=== PATIENT | male | born 1975 | race Caucasian/White ===

== ENCOUNTER 2016-10-02 09:23 | Emergency (ER) | payer OTHER ==
[2016-10-02 10:35] VITALS: BP 158/101
--- NOTE | 2016-10-02 10:49 | UC ---
Throat Pain/Nasal Anuj HPI - HPI Summary HPI Summary: very minor st for a couple days got concerned when he noticed white exudates, no cough, fever - History of Current Complaint Chief Complaint: UCRespiratory Stated Complaint: SORE THROAT Time Seen by Provider: 10/02/16 10:40 Hx Obtained From: Patient Onset/Duration: Gradual Onset, Lasting Days - 2, Still Present Severity: Mild Pain Intensity: 1 Pain Scale Used: 0-10 Numeric Cough: None Associated Signs & Symptoms: Positive: Negative - Allergies/Home Medications Allergies/Adverse Reactions: Allergies Allergy/AdvReac Type Severity Reaction Status Date / Time No Known Allergies Allergy Verified 10/02/16 10:34 Home Medications: Home Medications Metoprolol Tartrate TAB* [Lopressor TAB*] 50 mg PO DAILY 10/02/16 [History Confirmed 10/02/16] PMH/Surg Hx/FS Hx/Imm Hx Previously Healthy: No Cardiovascular History Of: Reports: Hypertension - Surgical History Surgical History: None - Family History Known Family History: Positive: Hypertension - Social History Occupation: Employed Full-time Lives: With Family Alcohol Use: Rare Substance Use Type: None Smoking Status (MU): Never Smoked Tobacco - Immunization History Most Recent Influenza Vaccination: august 2016 Review of Systems Constitutional: Negative Skin: Negative Eyes: Negative ENT: Sore Throat Respiratory: Negative Cardiovascular: Negative Gastrointestinal: Negative Genitourinary: Negative Motor: Negative Neurovascular: Negative Musculoskeletal: Negative Neurological: Negative Psychological: Negative All Other Systems Reviewed And Are Negative: Yes Physical Exam Triage Information Reviewed: Yes Appearance: Well-Appearing, No Pain Distress, Well-Nourished Vital Signs: Initial Vital Signs Temp 98.7 F 10/02/16 10:31 Pulse 88 10/02/16 10:31 Resp 20 10/02/16 10:31 BP 158/101 10/02/16 10:31 Pulse Ox 99 10/02/16 10:31 Vital Signs Reviewed: Yes Eye Exam: Normal Eyes: Positive: Conjunctiva Clear ENT Exam: Normal ENT: Positive: Hearing grossly normal, Pharynx normal, TMs normal, Tonsillar swelling, Tonsillar exudate. Negative: Nasal congestion, Nasal drainage Dental Exam: Normal Neck exam: Normal Neck: Positive: Supple, Nontender, No Lymphadenopathy Respiratory Exam: Normal Respiratory: Positive: Chest non-tender, Lungs clear, Normal breath sounds, No respiratory distress, No accessory muscle use Cardiovascular Exam: Normal Cardiovascular: Positive: RRR, No Murmur, Pulses Normal, Brisk Capillary Refill Musculoskeletal Exam: Normal Musculoskeletal: Positive: Strength Intact, ROM Intact, No Edema Neurological Exam: Normal Neurological: Positive: Alert, Muscle Tone Normal Psychological Exam: Normal Skin Exam: Normal Diagnostics - Laboratory Diagnostic Studies Completed/Ordered: RST(-) Throat Pain/Nasal Course/Dx - Course Assessment/Plan: increase fluids, recheck bp, tylenol, ibuprofen, otc remedies for discomfort - Differential Dx/Diagnosis Differential Diagnosis/HQI/PQRI: Pharyngitis, Sinusitis, Tonsillitis, URI Provider Diagnoses: Tonsillitis Discharge - Discharge Plan Condition: Stable Disposition: HOME Patient Education Materials: Acetaminophen (By mouth), Tonsillitis (ED), DASH Eating Plan (ED), Hypertension (ED) Referrals: Sajan Gillespie MD [Medical Doctor] - 1 Week
== END 2016-10-02 11:14 | disposition home or self-care (01) ==
LOC: UCEAST 09:23
DX: J03.90 Acute tonsillitis, unspecified (principal)
CPT/HCPCS: 87651; 99211; G0463

== ENCOUNTER 2018-03-26 07:01 | Emergency (ER) | payer OTHER ==
--- NOTE | 2018-03-26 07:41 | UC ---
Sherita Black Rebecca, scribed for Abbey Leonardo MD on 03/26/18 at 0729 . Hypertension HPI - HPI Summary HPI Summary: Pt is a 42 y/o M who presents to [facility] c/o elevated BP. PMHx HTN for which he has been following up with Dr. Gillespie who last adjusted his Metoprolol dose in August. Last followed up with Dr. Gillespie in November during which he wore an ambulatory BP cuff throughout the day, per pt. Does not remember his BP readings then, though he states that Dr. Gillespie was alright with them. He typically checks his BP less than once a week and was seen by his PCP's office for allergies last week where his BP was 158/97 per pt. Yesterday, he began feeling his "pulse wherever I can feel my pulse" describing it as his "high blood pressure feeling." When he checked it last night at home, his BP was 170/ 100 so he presents today as he wanted to be soon prior to his scheduled visit tomorrow. Denies CP, SOB, TAYLOR, vision changes, nausea, tingling, dizziness, difficulty balancing. Significant maternal FHx HTN and he has an appointment with Dr. Gillespie tomorrow. Confirms he exercises regularly and is currently taking Fluticasone nasal spray and Claritin for seasonal allergies. States that he does not drink coffee and drinks tea, but not too much. pt took his med today Pt has appt with PCP tomorrow to f/u on his bp but wanted to be checked today - History of Current Complaint Chief Complaint: UCGeneralIllness Stated Complaint: HBP Time Seen by Provider: 03/26/18 07:19 Hx Obtained From: Patient Onset/Duration: Lasting Days - Since yesterday, Still Present Reported Blood Pressure Prior To Arrival:: 170/100 Aggravating Factor(s): Nothing Alleviating Factor(s): Nothing Associated Signs And Symptoms: Negative: Chest Pain, Vision Changes, Headaches, Tingling, Dizziness - Allergies/Home Medications Allergies/Adverse Reactions: Allergies Allergy/AdvReac Type Severity Reaction Status Date / Time No Known Allergies Allergy Verified 03/26/18 07:10 Home Medications: Home Medications Fluticasone NASAL SPRAY 50MCG* [Flonase NASAL SPRAY 50MCG*] 2 spray NASAL DAILY 03/26/18 [History Confirmed 03/26/18] PMH/Surg Hx/FS Hx/Imm Hx - Additional Past Medical History Additional PMH: NEGATIVE PMHx: DM, Thyroid disease, COPD Previously Healthy: Yes Cardiovascular History: Hypertension - Surgical History Surgical History: None - Family History Known Family History: Positive: Hypertension - Social History Occupation: Employed Full-time - [employer] Lives: With Family - Daughter Alcohol Use: Rare Substance Use Type: None Smoking Status (MU): Never Smoked Tobacco - Immunization History Most Recent Influenza Vaccination: august 2016 Review of Systems Constitutional: Negative Skin: Negative Eyes: Negative ENT: Negative Respiratory: Negative Cardiovascular: Negative Gastrointestinal: Negative Genitourinary: Negative Motor: Negative Neurovascular: Negative Musculoskeletal: Negative Neurological: Negative Psychological: Negative All Other Systems Reviewed And Are Negative: Yes - Comments Additional Review of Systems Comments: NEGATIVE: CP, SOB, TAYLOR, vision changes, nausea, tingling, dizziness, difficulty balancing Physical Exam - Summary Physical Exam Summary: Vital Signs Reviewed: Yes A+Ox3, no distress Eyes: Conjunctiva Clear, GENESIS. EOM intact and full ENT: Hearing grossly normal TM x 2 clear, mmoist, uvula midline, no exudate, no erythema Neck: Positive: Supple Respiratory: Positive: No respiratory distress, No accessory muscle use + CTA throughout no w/r Cardiovascular: RRR nl s1, s2 no m/r CBT <2 sec no bruits b/l abd soft + BS nt/nd no guarding, no distension Musculoskeletal Exam: RAYO x 4 without difficulty Strength Intact, ROM Intact Neurological: Positive: Alert, + sensation throughout CN 2- 12 intact. no difficulty with balance or ambulation Psychological: Positive: Normal Response To Family Skin: Positive: no rash, no ecchymosis Triage Information Reviewed: Yes Vital Signs: Initial Vital Signs Temp 98.2 F 03/26/18 07:11 Pulse 77 03/26/18 07:11 Resp 16 03/26/18 07:11 BP 170/91 03/26/18 07:11 Pulse Ox 100 03/26/18 07:11 Re-Evaluation - Re-Evaluation First Eval Re-Evaluation Time: 08:19 Comment: Updated the pt on attempts to contact his PCP's office. Advised that he should call the office today after his discharge. Hypertension Course/Dx - Course Course Of Treatment: Blood pressure noted and patient informed to follow up with PCP tomorrow as scheduled. Pt presents because of elevated BP reading yesterday and again today. Pt without any physical complaints at today's visit. Pt has a preschedule appt with PCP tomorrow. reviewed of pt's encounters, pt has consistently had elevated BP readings. today pt with non concerning exam. pt's BP symmetric. I had a lengthy discussion with pt regarding blood pressure and physical sx related to it. I made 4 attempts to contact PCP to discuss initiating a second agent today vs waiting for pt's appt tomorrow Unable to successfull d/w pcp =pt in agreement to call office after 9am when staff will be available per the call service. pt advised to ED if any sx develop. Pt comfortable and in agreement with plan - will keep appt tomorrow as scheduled - Differential Dx/Diagnosis Provider Diagnoses: hypertension without symptoms Discharge - Sign-Out/Discharge Documenting (check all that apply): Discharge/Admit/Transfer - Discharge - Discharge Plan Condition: Stable Disposition: HOME Patient Education Materials: Hypertension (ED) Referrals: Sajan Gillespie MD [Primary Care Provider] - (tomorrow as scheduled) Additional Instructions: - Continue with your metoprolol as previously instructed - Stay well hydrated - drink plenty of non-alcoholic, non-caffinated beverages - Contact Dr. Gillespie's office today to determine if he wants you to start and additional blood pressure medication or if he want to wait until your appointment tomorrow - if you develop headache, nausea, chest pain, shortness of breath, lightheadedness or any other questions - go directly to the emergency department - Billing Disposition and Condition Condition: STABLE Disposition: Home The documentation as recorded by the Sherita alonso Rebecca accurately reflects the service I personally performed and the decisions made by me, Abbey Leonardo MD.
[2018-03-26 07:50] VITALS: BP 154/101
== END 2018-03-26 08:37 | disposition home or self-care (01) ==
LOC: UCEAST 07:01
DX: I10 Essential (primary) hypertension (principal); Z82.49 Family history of ischemic heart disease and other diseases of the circulatory system
CPT/HCPCS: 99211; G0463

== ENCOUNTER 2018-10-30 16:51 | Emergency (ER) | payer OTHER ==
[2018-10-30 17:53] VITALS: BP 157/82
--- NOTE | 2018-10-30 17:53 | UC ---
Skin Complaint HPI - HPI Summary HPI Summary: PATIENT STARTED LISINOPRIL 5 MG ONCE DAILY 2 NIGHTS AGO. WOKE UP THIS MORNING WITH A SENSATION OF UPPER LIP SWELLING AND TINGLING. STATES WHILE IT DOESN'T LOOK ALL THAT SWOLLEN IT FEELS SWOLLEN TO HIM FROM THE INSIDE. HE ALSO FEELS A LITTLE TINGLY IN HIS CHEEKS. HAS HAD ABOUT MILD DRY COUGH FOR THE PAST COUPLE OF DAYS WELL. DENIES ANY RESPIRATORY DIFFICULTY OR AIRWAY COMPROMISE. NO SHORTNESS OF BREATH OR WHEEZING. NO FEVER. NO NAUSEA. NO RASH. CALLED HIS PCP AND WAS ADVISED TO SEEK EVALUATION. - History of Current Complaint Chief Complaint: UCAllergicReaction Time Seen by Provider: 10/30/18 17:24 Stated Complaint: LIP SWELLING Hx Obtained From: Patient Onset/Duration: Sudden Onset, Lasting Hours, Still Present Timing: Constant Onset Severity: Mild Current Severity: Mild Pain Intensity: 0 Pain Scale Used: 0-10 Numeric Character: Swelling Alleviating Factor(s): Nothing Associated Signs & Symptoms: Negative: Nausea, Vomiting, Difficulty Breathing, Fever, Wheezing, Chest Pain, Throat Tightening, Rash, Lightheadedness - Allergy/Home Medications Allergies/Adverse Reactions: Allergies Allergy/AdvReac Type Severity Reaction Status Date / Time No Known Allergies Allergy Verified 10/30/18 17:11 PMH/Surg Hx/FS Hx/Imm Hx Cardiovascular History: Hypertension - Surgical History Surgical History: None - Family History Known Family History: Positive: Hypertension - Social History Alcohol Use: Rare Substance Use Type: None Smoking Status (MU): Never Smoked Tobacco - Immunization History Most Recent Influenza Vaccination: august 2016 Review of Systems All Other Systems Reviewed And Are Negative: Yes Constitutional: Positive: Negative Skin: Positive: Other - LIP SWELLING ENT: Positive: Negative Respiratory: Positive: Negative Cardiovascular: Positive: Negative Gastrointestinal: Positive: Negative Physical Exam Triage Information Reviewed: Yes Appearance: Well-Appearing, No Pain Distress, Well-Nourished Vital Signs: Initial Vital Signs Temp 98 F 10/30/18 17:06 Pulse 77 10/30/18 17:06 Resp 16 10/30/18 17:06 BP 177/98 10/30/18 17:06 Pulse Ox 97 10/30/18 17:06 Vital Signs Reviewed: Yes Eyes: Positive: Conjunctiva Clear ENT: Positive: Hearing grossly normal, Pharynx normal, TMs normal, Other - NO APPARENT TONGUE OR LIP SWELLING. 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 STOP THIS MEDICATION AND DO NOT TAKE IT AGAIN IN THE FUTURE. BE VIGILANT OF YOUR SYMPTOMS AND GO DIRECTLY TO THE CLOSEST ER IF YOU DEVELOP WORSENING SWELLING, FEVER, RESPIRATORY DIFFICULTY, WHEEZING OR ANY OTHER CONCERNING SYMPTOMS. FOLLOW-UP WITH DR. GILLESPIE IN THE NEXT 1-2 DAYS TO REEVALUATE YOUR BLOOD PRESSURE AND TO DISCUSS ALTERNATIVE TREATMENTS. - Billing Disposition and Condition Condition: STABLE Disposition: Home
== END 2018-10-30 18:10 | disposition home or self-care (01) ==
LOC: UCEAST 16:51
DX: T78.3XXA Angioneurotic edema, initial encounter (principal)
CPT/HCPCS: 99211; G0463

== ENCOUNTER 2019-02-27 10:27 | Emergency (ER) | payer OTHER ==
--- OUTSIDE RECORDS SUMMARY | 2019-02-27 10:31 | XMS REPORT | Continuity of Care Document ---
:1975 External Reference #:[id number] Author Name Noa Peralta Care Team Providers Name Role Phone Sajan Gillespie MD Primary Care Physician Unavailable Payers Date Identification Numbers Payment Provider Subscriber Effective: 2018 Policy Number: [id number] [employer] Andrews Irizarry PayID: [id number] [address] [place] [address] Advance Directives Description No Information Available Problems Description No Information Family History Date Family Member(s) Observation Comments Father Thyroid Disease Mother Hypertension Siblings 2 female-55 male-44 Social History Type Date Description Comments Sex Unknown Marital Status 2013 pulmonary embolism Lives With Family 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 To move to [facility] March 2019 Tobacco Use Start: Unknown Never Smoked Cigarettes Smoking Status Reviewed: 01/30/19 Never Smoked Cigarettes ETOH Use Drinks Alcoholic Beverages Rarely Tobacco Use Start: Unknown Patient has never smoked Recreational Drug Use Denies Drug Use Exercise Type/Frequency Exercises regularly gym Allergies, Adverse Reactions, Alerts Active Allergies Reaction Severity Comments Date Lisinopril 01/02/2019 Seasonal 01/02/2019 Hydrochlorothiazide [place] ill at high doses 01/02/2019 Medications Active Medications SIG Qnty Indications Ordering Provider Date Amlodipine Besylate 1 by mouth every Unknown 10mg day Tablets Toprol XL 1 1/2 tablets by Unknown 100mg Tablets mouth every day ER 24HR Eql Omeprazole one a day Unknown 20mg Tablets DR History Medications Eq Omeprazole Magnesium 1 by mouth every Unknown - 01/30/2019 20mg morning for [address] as needed Immunizations Description No Information Available Vital Signs Date Vital Result Comment 01/30/2019 9:28am Height 72 inches 6'0" Weight 230.25 lb Heart Rate 64 /min BP Systolic Sitting 139 mmHg BP Diastolic Sitting 80 mmHg O2 % BldC Oximetry 99 % BMI (Body Mass Index) 31.2 kg/m2 01/02/2019 9:25am Height 72 inches 6'0" Weight 234.00 lb with shoes Heart Rate 74 /min BP Systolic 140 mmHg lue reg cuff BP Diastolic 84 mmHg lue reg cuff BP Systolic Sitting 138 mmHg lue reg cuff BP Diastolic Sitting 98 mmHg lue reg cuff Respiratory Rate 14 /min BMI (Body Mass Index) 31.7 kg/m2 Results Description No Information Available Procedures Date Code Description Status 01/06/2019 97012 Treadmill Interp/Report Only Completed 01/06/2019 23866 Stress Test Supervsn W/Out I/R Completed 01/02/2019 56251 EKG Tracing & Interpretation Completed Encounters Type Date Location Provider Dx Diagnosis Office Visit 01/02/2019 [facility] Ponce Barron, R07.9 Chest pain, 10:00a 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 unspecified K29.60 Other gastritis without bleeding I10 Essential (primary) hypertension E78.5 Hyperlipidemia, unspecified Office Visit 10/24/2018 8:40a [facility] Ronald Bedolla MD D23.61 Ot benign neoplasm skin/ right upper limb, inc shoulder 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
--- NOTE | 2019-02-27 12:13 | UC ---
Complaint Male HPI - HPI Summary HPI Summary: 43-year-old male comes in with a chief complaint of right scrotal pain. Started 2 days ago. No known trauma. No dysuria or concern of STI. Reports having not been sexually active for 5 years. No rash. Patient is on the right side of the scrotum. Patient reports it feels like it's just above the testicle. Occasionally the pain radiates into the right lower quadrant. Otherwise the patient does not have any right-sided flank pain or any other abdominal pain. No fevers or chills. No burning with urination. No prior abdominal surgeries. No history of kidney stones hernias. - History of Current Complaint Chief Complaint: UCGU Stated Complaint: PERSONAL Time Seen by Provider: 02/27/19 11:34 Pain Intensity: 2 - Allergies/Home Medications Allergies/Adverse Reactions: Allergies Allergy/AdvReac Type Severity Reaction Status Date / Time hydrochlorothiazide Allergy [place] ill Verified 02/27/19 10:47 taking high dosage lisinopril Allergy Swelling Verified 02/27/19 10:47 Of Face,Lips,& Throat seasonal Allergy allergy Uncoded 02/26/19 13:26 symptoms PMH/Surg Hx/FS Hx/Imm Hx Previously Healthy: Yes - Surgical History Surgical History: Yes Surgery Procedure, Year, and Place: endoscopy - Family History Known Family History: Positive: Hypertension - Social History Alcohol Use: Rare Substance Use Type: None Smoking Status (MU): Never Smoked Tobacco - Immunization History Most Recent Influenza Vaccination: august 2016 Review of Systems All Other Systems Reviewed And Are Negative: Yes Constitutional: Positive: Negative Skin: Positive: Negative Eyes: Positive: Negative ENT: Positive: Negative Respiratory: Positive: Negative Cardiovascular: Positive: Negative Gastrointestinal: Positive: Other - SEE HPI Genitourinary: Positive: Other - SEE HPI Motor: Positive: Negative Neurovascular: Positive: Negative Musculoskeletal: Positive: Negative Neurological: Positive: Negative Psychological: Positive: Negative Is Patient Immunocompromised?: No Physical Exam Triage Information Reviewed: Yes Appearance: Well-Appearing, No Pain Distress, Well-Nourished Vital Signs: Initial Vital Signs Temp 99.2 F 02/27/19 10:43 Pulse 61 02/27/19 10:43 Resp 18 02/27/19 10:43 BP 152/93 02/27/19 10:43 Pulse Ox 99 02/27/19 10:43 Vital Signs Reviewed: Yes Eye Exam: Normal Eyes: Positive: Conjunctiva Clear Neck: Positive: Supple Respiratory: Positive: Lungs clear, Normal breath sounds, No respiratory distress Cardiovascular: Positive: RRR Abdomen Description: Positive: Nontender, Soft. Negative: CVA Tenderness (R), CVA Tenderness (L), Distended, Guarding Bowel Sounds: Positive: Present Male Genital Exam: Positive: Scrotum Tenderness (R) - JUST SUPERIOR TO RT TESTICLE MILD TENDERNESS., Other - TESTICLES NT, NORMAL SIZE AND AXIS. Negative : Scrotum Tenderness (L), Testicular Tenderness (R), Testicular Tenderness (L), Urethral Discharge Complaint Male Course/Dx - Course Course Of Treatment: Patient Name: TANIKA HAYES Medical Record#: [id number] Ordering Physician: Brady Cruz MD Acct.#: [id number] : 1975 Age: 43 Sex: M Location: [facility] Exam Date: 02/27/19 1141 ADM Status: REG ER Order Information: US TESTICULAR Accession Number: [id number] CPT: 90130 Indication: Right testicular pain. Real-time sonography of the scrotum was performed. The right testis measures 4.4 x 2.3 x 2.8 cm. No intratesticular masses are noted. Normal flow is noted in the right testis. The epididymis measures 1.3 x 1.3 cm. No hydrocele is noted. There is some mild enlargement of the pampiniform plexus. The maximum diameter of the vessels of 0.2 cm which is at the upper limits of normal. This may represent small right sided varicocele. Since this is a unilateral finding on the right extrinsic compression from retroperitoneal process of the right testicular vein is not excluded and CT should BE considered. Left testis measures 4.3 x 2.3 x 3.0 cm. No intratesticular masses are noted. The epididymis measures 1.1 x 1.1 cm. Small hydrocele is noted. IMPRESSION: Vessels are mildly dilated on the right measuring up to 0.2 cm. Early varicocele is not totally excluded. Since this is in the right side the possibility of retroperitoneal mass should be considered. <Electronically signed by Kerri Jacobsen MD in OV> 02/27/19 9362 I discussed this ultrasound report with the patient. At this time we will treat for varicocele and that treatment was discussed with the patient. I also give the patient the up to date patient information handout on varicocele. I discussed the ultrasound report with the radiologist who recommended a CT of the abdomen and pelvis with both oral and IV contrast to rule out any retroperitoneal mass causing the varicocele. He indicated this is not an emergent issue needed to be done today. I discussed the case with Dr. Gillespie the patient's primary care physician. The patient has a follow-up with Dr. Gillespie scheduled for Sunday, March 03, 2019. Dr. Gillespie is planning on ordering the CT abdomen and pelvis with oral and IV contrast. Patient should get reevaluated sooner if he worsens has any other questions or concerns. CBC AND CMP PENDING. - Differential Dx/Diagnosis Provider Diagnosis: Right varicocele, Scrotal pain Discharge - Sign-Out/Discharge Documenting (check all that apply): Patient Departure All imaging exams completed and their final reports reviewed: Yes - Discharge Plan Condition: Stable Disposition: HOME Patient Education Materials: Varicocele (ED), Scrotal Pain (ED) Referrals: Sajan Gillespie MD [Primary Care Provider] - Andrea Olivo MD [Medical Doctor] - Additional Instructions: FOLLOW UP WITH YOUR PRIMARY CARE DOCTOR, DR GILLESPIE, ON 03/03/19, SCHEDULED. DR GILLESPIE WILL ORDER THE CT ABDOMEN AND PELVIS WITH BOTH ORAL AND IV CONTRAST. GET RECHECKED SOONER IF YOUR CONDITION WORSENS; PAIN, FEVER, YOU FEEL ILL OR ANY QUESTIONS OR CONCERNS. - Billing Disposition and Condition Condition: STABLE Disposition: Home
[2019-02-27 12:55] VITALS: BP 169/89
[2019-02-27 19:27] LABS: Albumin 4.6 g/dL (3.2-5.2); Potassium 4.8 mmol/L (3.5-5.0); Total Bilirubin 0.4 mg/dL (0.2-1.0)
[2019-02-27 19:33] LABS: Albumin/Globulin Ratio 1.5 (1-3); EGFR African American 109.7 (>60); EGFR Non-African American 90.7 (>60); Total Protein 7.6 g/dL (6.4-8.9)
== END 2019-02-27 13:30 | disposition home or self-care (01) ==
LOC: UCEAST 10:27
DX: I86.1 Scrotal varices (principal); N50.82 Scrotal pain; Z88.8 Allergy status to other drugs, medicaments and biological substances; Z91.09 Other allergy status, other than to drugs and biological substances
CPT/HCPCS: 36415; 76870; 80053; 81003; 99211; G0463